=== PATIENT | female | born 1970 | race Caucasian/White ===

== ENCOUNTER 2018-12-05 19:23 | Inpatient (IN) | payer OTHER ==
[2018-12-05] MEDS ORDERED: LABETALOL SYRINGE 5 MG/ML IVP STA (19:41)
[2018-12-05] MEDS ORDERED: SODIUM CHLORIDE 0.9% 1,000 ML IV STA (19:41)
--- NOTE | 2018-12-05 19:46 | ED ---
Recheck HPI - General Chief Complaint: Recheck/Abnormal Lab/Rx Stated Complaint: hypertension Source: patient, RN notes reviewed, old records reviewed Mode of arrival: ambulatory Limitations: no limitations - History of Present Illness Initial Comments: This is a 48-year-old female the ER for evaluation. Patient does say for evaluation of abnormal blood pressure. Patient presented to urgent care for ear pain was diagnosed with otitis externa which she does have the patient was found of severe abnormal blood pressure history of abnormal blood pressure with but no medications. Last physical exam or doctor's visit was 4 years ago. Patient is otherwise asymptomatic. MD Complaint: other (Patient has abnormal blood pressure outpatient setting) -: minutes(s) Returns Today for: Called Because of Abnormal Lab/Test Symptoms Since Prior Visit: no new symptoms Context: planned re-check Associated Symptoms: none - Related Data Home Medications Medication Instructions Recorded Confirmed No Known Home Medications 12/05/18 12/05/18 Allergies Allergy/AdvReac Type Severity Reaction Status Date / Time Sulfa (Sulfonamide Allergy Rash/Hives Verified 12/05/18 20:05 Antibiotics) Review of Systems ROS Statement: Those systems with pertinent positive or pertinent negative responses have been documented in the HPI. ROS Other: All systems not noted in ROS Statement are negative. Past Medical History Past Medical History: No Reported History History of Any Multi-Drug Resistant Organisms: None Reported Past Surgical History: Section, Tonsillectomy Past Psychological History: No Psychological Hx Reported Smoking Status: Never smoker Past Alcohol Use History: Rare Past Drug Use History: None Reported General Exam Limitations: no limitations General appearance: alert, in no apparent distress Head exam: Present: atraumatic, normocephalic, normal inspection Eye exam: Present: normal appearance, PERRL, EOMI. Absent: scleral icterus, conjunctival injection, periorbital swelling ENT exam: Present: normal exam, mucous membranes moist Neck exam: Present: normal inspection. Absent: tenderness, meningismus, lymphadenopathy Respiratory exam: Present: normal lung sounds bilaterally. Absent: respiratory distress, wheezes, rales, rhonchi, stridor Cardiovascular Exam: Present: regular rate, normal rhythm, normal heart sounds. Absent: systolic murmur, diastolic murmur, rubs, gallop, clicks GI/Abdominal exam: Present: soft, normal bowel sounds. Absent: distended, tenderness, guarding, rebound, rigid Extremities exam: Present: normal inspection, full ROM, normal capillary refill. Absent: tenderness, pedal edema, joint swelling, calf tenderness Back exam: Present: normal inspection Neurological exam: Present: alert, oriented X3, CN II-XII intact Psychiatric exam: Present: normal affect, normal mood Skin exam: Present: warm, dry, intact, normal color. Absent: rash Course Vital Signs 12/05/18 12/05/18 12/05/18 19:26 20:14 20:16 Temperature 97.9 F Pulse Rate 92 76 81 Respiratory 20 26 H 16 Rate Blood Pressure 256/150 239/115 O2 Sat by Pulse 100 99 100 Oximetry 12/05/18 12/05/18 12/05/18 20:20 20:30 20:40 Temperature Pulse Rate 70 Respiratory 11 L Rate Blood Pressure 234/131 234/131 O2 Sat by Pulse 98 98 Oximetry 12/05/18 20:50 Temperature Pulse Rate Respiratory Rate Blood Pressure 216/133 O2 Sat by Pulse Oximetry - Reevaluation(s) Reevaluation #1: 12/05/18 21:03 Medical record is reviewed Reevaluation #2: 12/05/18 21:03 Patient still hypertensive urgency despite blood pressure medication. Patient will admit for blood pressure control Medical Decision Making - Medical Decision Making 48 female the ER for evaluation will not for blood pressure management - Lab Data Result diagrams: 12/05/18 20:00 12/05/18 20:00 Lab Results 12/05/18 12/05/18 12/05/18 Range/Units 20:00 20:00 20:00 WBC 6.9 (3.8-10.6) k/uL RBC 4.52 (3.80-5.40) m/uL Hgb 13.1 (11.4-16.0) gm/dL Hct 39.0 (34.0-46.0) % MCV 86.2 (80.0-100.0) fL MCH 29.1 (25.0-35.0) pg MCHC 33.7 (31.0-37.0) g/dL RDW 13.5 (11.5-15.5) % Plt Count 259 (150-450) k/uL Neutrophils % 69 % Lymphocytes % 21 % Monocytes % 5 % Eosinophils % 3 % Basophils % 0 % Neutrophils # 4.8 (1.3-7.7) k/uL Lymphocytes # 1.4 (1.0-4.8) k/uL Monocytes # 0.3 (0-1.0) k/uL Eosinophils # 0.2 (0-0.7) k/uL Basophils # 0.0 (0-0.2) k/uL PT (9.0-12.0) sec INR (<1.2) APTT (22.0-30.0) sec Sodium 138 (137-145) mmol/L Potassium 3.6 (3.5-5.1) mmol/L Chloride 104 (98-107) mmol/L Carbon Dioxide 24 (22-30) mmol/L Anion Gap 10 mmol/L BUN 17 (7-17) mg/dL Creatinine 0.75 (0.52-1.04) mg/dL Est GFR (CKD-EPI)AfAm >90 (>60 ml/min/1.73 sqM) Est GFR (CKD-EPI)NonAf >90 (>60 ml/min/1.73 sqM) Glucose 99 (74-99) mg/dL Plasma Lactic Acid Tima 0.8 (0.7-2.0) mmol/L Calcium 9.1 (8.4-10.2) mg/dL Phosphorus 3.6 (2.5-4.5) mg/dL Magnesium 2.0 (1.6-2.3) mg/dL Total Bilirubin 0.6 (0.2-1.3) mg/dL AST 19 (14-36) U/L ALT 19 (9-52) U/L Alkaline Phosphatase 63 (38-126) U/L Creatine Kinase 46 (30-135) U/L Troponin I (0.000-0.034) ng/mL Total Protein 7.3 (6.3-8.2) g/dL Albumin 4.5 (3.5-5.0) g/dL Urine Color Urine Appearance (Clear) Urine pH (5.0-8.0) Ur Specific [place] (1.001-1.035) Urine Protein (Negative) Urine Glucose (UA) (Negative) Urine Ketones (Negative) Urine Blood (Negative) Urine Nitrite (Negative) Urine Bilirubin (Negative) Urine Urobilinogen (<2.0) mg/dL Ur Leukocyte Esterase (Negative) 12/05/18 12/05/1819 Range/Units 20:00 20:00 20:25 WBC (3.8-10.6) k/uL RBC (3.80-5.40) m/uL Hgb (11.4-16.0) gm/dL Hct (34.0-46.0) % MCV (80.0-100.0) fL MCH (25.0-35.0) pg MCHC (31.0-37.0) g/dL RDW (11.5-15.5) % Plt Count (150-450) k/uL Neutrophils % % Lymphocytes % % Monocytes % % Eosinophils % % Basophils % % Neutrophils # (1.3-7.7) k/uL Lymphocytes # (1.0-4.8) k/uL Monocytes # (0-1.0) k/uL Eosinophils # (0-0.7) k/uL Basophils # (0-0.2) k/uL PT 10.1 (9.0-12.0) sec INR 0.9 (<1.2) APTT 24.3 (22.0-30.0) sec Sodium (137-145) mmol/L Potassium (3.5-5.1) mmol/L Chloride (98-107) mmol/L Carbon Dioxide (22-30) mmol/L Anion Gap mmol/L BUN (7-17) mg/dL Creatinine (0.52-1.04) mg/dL Est GFR (CKD-EPI)AfAm (>60 ml/min/1.73 sqM) Est GFR (CKD-EPI)NonAf (>60 ml/min/1.73 sqM) Glucose (74-99) mg/dL Plasma Lactic Acid Tima (0.7-2.0) mmol/L Calcium (8.4-10.2) mg/dL Phosphorus (2.5-4.5) mg/dL Magnesium (1.6-2.3) mg/dL Total Bilirubin (0.2-1.3) mg/dL AST (14-36) U/L ALT (9-52) U/L Alkaline Phosphatase (38-126) U/L Creatine Kinase (30-135) U/L Troponin I <0.012 (0.000-0.034) ng/mL Total Protein (6.3-8.2) g/dL Albumin (3.5-5.0) g/dL Urine Color Colorless Urine Appearance Clear (Clear) Urine pH 7.0 (5.0-8.0) Ur Specific [place] 1.007 (1.001-1.035) Urine Protein Negative (Negative) Urine Glucose (UA) Negative (Negative) Urine Ketones 1+ H (Negative) Urine Blood Negative (Negative) Urine Nitrite Negative (Negative) Urine Bilirubin Negative (Negative) Urine Urobilinogen <2.0 (<2.0) mg/dL Ur Leukocyte Esterase Negative (Negative) - EKG Data -: EKG Interpreted by Me (EKG shows sinus rhythm rate of 83, VT 170, QRS 86, QTc 460) Disposition Clinical Impression: Hypertensive urgency Disposition: ADMITTED IP TO THIS HOSP Condition: Fair Is patient prescribed a controlled substance at d/c from ED?: No Referrals: Wenceslao Richardson MD [Primary Care Provider] - 1-2 days
[2018-12-05 20:12] LABS: Basophils % (A) 0 %; Eosinophils # (A) 0.2 k/uL (0-0.7); Eosinophils % (A) 3 %; HGB 13.1 gm/dL (11.4-16.0); Lymphocytes # (A) 1.4 k/uL (1.0-4.8); Lymphocytes % (A) 21 %; MCH 29.1 pg (25.0-35.0); MCHC 33.7 g/dL (31.0-37.0); MCV 86.2 fL (80.0-100.0); Mean Platelet Volume 7.1; Monocytes # (A) 0.3 k/uL (0-1.0); Monocytes % (A) 5 %; Neutrophils # (A) 4.8 k/uL (1.3-7.7); Neutrophils % (A) 69 %; Platelet Count 259 k/uL (150-450); RBC 4.52 m/uL (3.80-5.40); RDW 13.5 % (11.5-15.5); WBC 6.9 k/uL (3.8-10.6)
[2018-12-05 20:20] LABS: INR 0.9 (<1.2); Partial Thromboplastin Time 24.3 sec (22.0-30.0); Prothrombin Time 10.1 sec (9.0-12.0)
[2018-12-05 20:23] LABS: ALT 19 U/L (9-52); AST 19 U/L (14-36); African American GFR (CKD) >90 (>60 ml/min/1.73 sqM); Albumin 4.5 g/dL (3.5-5.0); Alkaline Phosphatase 63 U/L (38-126); Anion Gap 10 mmol/L; Blood Urea Nitrogen 17 mg/dL (7-17); Calcium 9.1 mg/dL (8.4-10.2); Carbon Dioxide 24 mmol/L (22-30); Chloride 104 mmol/L (98-107); Creatine Kinase 46 U/L (30-135); Glucose 99 mg/dL (74-99); Phosphorus 3.6 mg/dL (2.5-4.5); Potassium 3.6 mmol/L (3.5-5.1); Sodium 138 mmol/L (137-145); Total Bilirubin 0.6 mg/dL (0.2-1.3); Total Protein 7.3 g/dL (6.3-8.2)
[2018-12-05 20:38] LABS: Appearance,Urine Clear (Clear); Bilirubin,Urine Negative (Negative); Blood,Urine Negative (Negative); Color,Urine Colorless; Glucose,Urine (UA) Negative (Negative); Ketones,Urine 1+ (Negative); Leukocyte Esterase,Urine Negative (Negative); Nitrite,Urine Negative (Negative); Protein,Urine Negative (Negative); Specific Gravity,Urine 1.007 (1.001-1.035); Urobilinogen,Urine <2.0 mg/dL (<2.0)
[2018-12-05] MEDS ORDERED: SODIUM CHLORIDE 0.9% 1,000 ML IV ONE (21:03)
[2018-12-05] MEDS ORDERED: METOPROLOL TARTRATE 50 MG TAB PO STA (21:04)
[2018-12-05] MEDS ORDERED: LORazepam 2 MG/ML INJ IV STA (21:06)
--- NOTE | 2018-12-05 21:28 | XR ---
EXAM: XR Chest, 2 Views CLINICAL HISTORY: ITS.REASON XR Reason: Weakness TECHNIQUE: Frontal and lateral views of the chest. COMPARISON: No relevant prior studies available. FINDINGS: Lungs: Unremarkable. No consolidation. Pleural space: Unremarkable. No pneumothorax. Heart: Unremarkable. No cardiomegaly. Mediastinum: Unremarkable. Bones/joints: Unremarkable. IMPRESSION: No acute cardiopulmonary abnormality.
[2018-12-06] MEDS ORDERED: METOPROLOL TARTRATE 50 MG TAB PO SCH (09:00)
[2018-12-06] MEDS ORDERED: LISINOPRIL 10 MG TAB PO SCH (09:00)
[2018-12-06 11:32] VITALS: RESP 16
--- NOTE | 2018-12-06 15:44 | P.HPIM ---
History of Present Illness H&P Date: 12/06/18 Chief Complaint: Tingling in the arms History of presenting complaint: This is a pleasant 48-year-old patient of Dr. merino. Patient doesn't could have other active. Patient is getting treated for otitis externa with eardrops. Not much pain. Patient went to the office and was found to have a high blood pressure. About 200 systolic. Patient for last 1 week has noticed some tingling in her arms. Last week also was treated for food poisoning. That is actually last weekend. There is no chest pain no dizziness no lightheadedness. No change in vision. Patient ER was given lisinopril and beta daphne. Denies any headache or vision changes. No abdominal pain. Admitted for the same. Review of systems: GEN.: None EYES: None HEENT: Left ear discomfort NECK: None RESPIRATORY: None CARDIOVASCULAR: None GASTROINTESTINAL: None GENITOURINARY: None MUSCULOSKELETAL: None LYMPHATICS: None HEMATOLOGICAL: None PSYCHIATRY: None NEUROLOGICAL: None Past medical history: Currently being treated for otitis externa in the left ear Social history: , does not smoke. Alcohol occasionally. Works at [employer] Physical examination: VITAL SIGNS: 97.9, 92, 20, 2 56/1 50, 100% on room air GENERAL: BMI 34.2, sitting up, comfortable. EYES: Pupils equal. Conjunctiva normal. HEENT: External appearance of nose and ears normal, oral cavity grossly normal. NECK: JVD not raised; masses not palpable. HEART: First and second heart sounds are normal; no edema. LUNGS: Respiratory rate normal; clear to auscultation. ABDOMEN: Soft, nontender, liver spleen not palpable, no masses palpable. PSYCH: Alert and oriented x3; mood and affect normal. NEUROLOGICAL: Cranial nerves grossly intact; no facial asymmetry, power and sensation grossly intact. LYMPHATICS: No lymph nodes palpable in the axilla and neck Investigations, reviewed in the clinical context: White count 6.9, hemoglobin 13.1, platelets 259, potassium 3.6, when necessary 17, creatinine 0.75 Troponin less than 0.012 EKG tracing personally reviewed by me shows poor R-wave progression Chest x-ray film personally reviewed by me shows lung velazco to be clear Assessment: -Accelerated essential hypertension. No clinical evidence of any secondary caus e present time -Obesity BMI 34.2 Plan: Patient did receive beta dpahne and lisinopril in the ER. We'll switch the patient over to lisinopril/hydrochlorothiazide 20/12.5 twice a day. Patient be put on a low-sodium diet. Have dietitian see the patient. Blood pressures us to come down can be discharged later. Patient will need an outpatient 2-D echocardiogram. Patient otherwise asymptomatic. Care was discussed with the patient. Past Medical History Past Medical History: No Reported History History of Any Multi-Drug Resistant Organisms: None Reported Past Surgical History: Section, Tonsillectomy Past Anesthesia/Blood Transfusion Reactions: No Reported Reaction Past Psychological History: No Psychological Hx Reported Smoking Status: Never smoker Past Alcohol Use History: Rare Past Drug Use History: None Reported - Past Family History Mother History Unknown: Yes Father Family Medical History: Coronary Artery Disease (CAD), Diabetes Mellitus Additional Family Medical History / Comment(s): MS Sister(s) Family Medical History: Hypertension Son(s) Family Medical History: Hypertension Medications and Allergies Home Medications Medication Instructions Recorded Confirmed Type No Known Home Medications 12/05/18 12/06/18 History Allergies Allergy/AdvReac Type Severity Reaction Status Date / Time Sulfa (Sulfonamide Allergy Rash/Hives Verified 12/06/18 00:30 Antibiotics) Physical Exam Vitals: Vital Signs Temp Pulse Pulse Resp BP BP BP 12/06/18 11:30 98.1 F 52 L 16 156/97 12/06/18 07:05 98.2 F 71 18 163/97 12/06/18 04:00 98 F 71 18 156/89 12/06/18 01:25 97.9 F 59 L 18 174/108 12/06/18 00:10 81 16 154/94 12/05/18 22:40 61 19 152/97 12/05/18 22:30 61 18 157/104 12/05/18 22:20 61 16 157/104 12/05/18 22:10 61 16 164/104 12/05/18 22:00 73 21 178/112 12/05/18 21:50 73 22 178/112 12/05/18 21:40 75 20 189/115 12/05/18 21:30 76 19 196/123 12/05/18 21:24 196/123 12/05/18 21:20 76 25 H 222/127 12/05/18 21:10 68 18 227/137 12/05/18 21:00 73 19 216/133 12/05/18 20:50 216/133 12/05/18 20:40 12/05/18 20:30 234/131 12/05/18 20:20 70 11 L 234/131 12/05/18 20:16 81 16 239/115 12/05/18 20:14 76 26 H 12/05/18 19:26 97.9 F 92 20 256/150 Pulse Ox 12/06/18 11:30 98 12/06/18 07:05 98 12/06/18 04:00 98 12/06/18 01:25 98 12/06/18 00:10 100 12/05/18 22:40 96 12/05/18 22:30 93 L 12/05/18 22:20 94 L 12/05/18 22:10 95 12/05/18 22:00 93 L 12/05/18 21:50 96 12/05/18 21:40 96 12/05/18 21:30 97 12/05/18 21:24 12/05/18 21:20 97 12/05/18 21:10 98 12/05/18 21:00 97 12/05/18 20:50 12/05/18 20:40 98 12/05/18 20:30 12/05/18 20:20 98 12/05/18 20:16 100 12/05/18 20:14 99 12/05/18 19:26 100 Intake and Output 12/06/18 12/06/18 12/06/18 06:59 14:59 22:59 Intake Total 940 Balance 940 Intake: Oral 840 Other 100 Other: Voiding Method Toilet Toilet Results CBC & Chem 7: 12/05/18 20:00 12/05/18 20:00 Labs: Abnormal Lab Results - Last 24 Hours (Table) 12/05/18 Range/Units 20:25 Urine Ketones 1+ H (Negative) Microbiology - Last 24 Hours (Table) 12/05/18 20:25 Urine Culture - Preliminary Urine,Clean Catch Thrombosis Risk Factor Assmnt - Choose All That Apply Any of the Below Risk Factors Present?: Yes Each Factor Represents 1 point: Age 41-60 years, Obesity (BMI >25) Other Risk Factors: No Other congenital or acquired thrombophilia - If yes, enter type in comment: No Thrombosis Risk Factor Assessment Total Risk Factor Score: 2 Thrombosis Risk Factor Assessment Level: Low Risk
[2018-12-06] MEDS: LISINOPRIL-HCTZ 20-12.5 MG 1 EACH TAB PO SCH ×2 (16:05→20:06)
[2018-12-06 16:28] VITALS: BMI 34.2
[2018-12-06 19:21] VITALS: BP 168/112; PULSE 64; TEMP 98.2
[2018-12-06] MEDS ORDERED: METOPROLOL TARTRATE 12.5 MG TAB PO SCH (20:00)
--- NOTE | 2018-12-06 21:49 | P.DS ---
Providers Date of admission: 12/06/18 08:00 Expected date of discharge: 12/06/18 Attending physician: Willie Mejia Primary care physician: Wenceslao Merino [facility] Course: Hospital course: This is a pleasant 48-year-old patient of Dr. merino. Patient doesn't could have other active. Patient is getting treated for otitis externa with eardrops. Not much pain. Patient went to the office and was found to have a high blood pressure. About 200 systolic. Patient for last 1 week has noticed some tingling in her arms. Last week also was treated for food poisoning. That is actually last weekend. There is no chest pain no dizziness no lightheadedness. No change in vision. Patient ER was given lisinopril and beta daphne. Denies any headache or vision changes. No abdominal pain. Admitted for the same. Blood pressure is better controlled by the time of discharge. Physical examination: VITAL SIGNS: 98.2, 64, 16, 160s/100 GENERAL: BMI 34.2, sitting up, comfortable. EYES: Pupils equal. Conjunctiva normal. HEENT: External appearance of nose and ears normal, oral cavity grossly normal. NECK: JVD not raised; masses not palpable. HEART: First and second heart sounds are normal; no edema. LUNGS: Respiratory rate normal; clear to auscultation. ABDOMEN: Soft, nontender, liver spleen not palpable, no masses palpable. PSYCH: Alert and oriented x3; mood and affect normal. NEUROLOGICAL: Cranial nerves grossly intact; no facial asymmetry, power and sensation grossly intact. LYMPHATICS: No lymph nodes palpable in the axilla and neck Investigations, reviewed in the clinical context: White count 6.9, hemoglobin 13.1, platelets 259, potassium 3.6, when necessary 17, creatinine 0.75 Troponin less than 0.012 EKG tracing personally reviewed by me shows poor R-wave progression Chest x-ray film personally reviewed by me shows lung velazco to be clear Assessment: -Accelerated essential hypertension. No clinical evidence of any secondary cause present time -Obesity BMI 34.2 Disposition: Home Patient will need 2-D echocardiogram that can be done through his family doctor as an outpatient. Patient Condition at Discharge: Stable Plan - Discharge Summary Discharge Rx Participant: Yes New Discharge Prescriptions: New Lisinopril-Hctz 20-12.5 mg [Zestoretic 20-12.5] 1 each PO BID #60 tab Metoprolol Tartrate [Lopressor] 12.5 mg PO BID #60 tab Continue Oznfecgl-[id number] Otic [Cortisporin Otic Soln] 4 drops LEFT EAR TID Discharge Medication List Lisinopril-Hctz 20-12.5 mg [Zestoretic 20-12.5] 1 each PO BID #60 tab 12/06/18 [Rx] Metoprolol Tartrate [Lopressor] 12.5 mg PO BID #60 tab 12/06/18 [Rx] [id number]-[id number]-Bd Otic [Cortisporin Otic Soln] 4 drops LEFT EAR TID 12/06/18 [History] Follow up Appointment(s)/Referral(s): Wenceslao Merino MD [Primary Care Provider] - 1 Week Patient Instructions/Handouts: Hypertension (DC) Activity/Diet/Wound Care/Special Instructions: Cardiac diet, pt is to start Metoprolol 12.5mg daily per Dr. Mejia for high blood pressure.
== END 2018-12-06 21:45 | disposition home or self-care (01) | DRG 305 ==
LOC: EC 19:23 → 1SOBS 21:04 → OBSVTOIN 12-06 08:00
PROVIDERS: ADMIT Hospitalist; ATTEND Hospitalist
DX: I16.0 Hypertensive urgency (principal); I10 Essential (primary) hypertension; H60.90 Unspecified otitis externa, unspecified ear; Z82.49 Family history of ischemic heart disease and other diseases of the circulatory system; Z83.3 Family history of diabetes mellitus; Z88.2 Allergy status to sulfonamides; E66.9 Obesity, unspecified; Z68.34 Body mass index [BMI] 34.0-34.9, adult
CPT/HCPCS: 36415; 71046; 80053; 81003; 82550; 83605; 83735; 84100; 84484; 85025; 85610; 85730; 87086; 93005; 96361; 96374; 96375; 99285

== ENCOUNTER → 2022-04-05 | Outpatient (CLI) | payer OTHER ==
--- NOTE | 2022-04-06 07:36 | MM ---
Reason for Exam: Screening (asymptomatic). Patient History: Menarche at age 11. First Full-Term at age 25. Postmenopausal. Risk Values: Cori 5 year model risk: 1.2%. NCI Lifetime model risk: 9.6%. Tissue Density: The breast tissue is heterogeneously dense. This may lower the sensitivity of mammography. Findings: Analyzed By CAD. A few scattered and loosely grouped benign-appearing tiny round calcifications bilaterally are present. There is no suspicious group of microcalcifications or suspicious mass in either breast. Overall Assessment: Benign, BI-RAD 2 Management: Screening Mammogram of both breasts in 1 year. A clinical breast exam by your physician is recommended on an annual basis and results should be correlated with mammographic findings. Electronically signed and approved by: Cameron Pineda M.D.
== END | disposition home or self-care (01) ==
LOC: RADMAMWWP 07:43
PROVIDERS: ATTEND Family Medicine
DX: Z12.31 Encounter for screening mammogram for malignant neoplasm of breast (principal); Z78.0 Asymptomatic menopausal state
CPT/HCPCS: 77067